=== PATIENT | male | born 1955 | race Caucasian/White ===

== ENCOUNTER 2021-04-26 14:07 | Inpatient (IN) | payer MEDICARE, OTHER ==
[2021-04-26] MEDS ORDERED: Diazepam 10 MG/2 ML SYRINGE ONE (16:17)
[2021-04-26] MEDS ORDERED: Aspirin Chewable 81 MG TAB ONE (16:20)
[2021-04-26] MEDS ORDERED: Ondansetron PF 4 MG/2 ML Vial ONE (16:20)
[2021-04-26 16:23] LABS: #Eosinphils 0.1 thou/uL (0.0-0.7); #Lymphocytes 0.9 thou/uL (1.20-3.40); #Monocytes 0.7 thou/uL (0.11-0.59); #Neutrophils 11.7 thou/uL (1.40-6.50); %Basophils 0.1 % (0.0-1.0); %Eosinophils 0.4 % (0.0-10.0); %Lymphocytes 6.7 % (21.0-51.0); %Monocytes 5.2 % (0.0-10.0); %Neutrophils 87.5 % (42.0-75.0); Hemoglobin 15.9 g/dL (14.0-18.0); Mean Corpuscular HGB CONC 34.5 g/dL (32.0-36.0); Mean Corpuscular Hemoglobin 31.4 pg (27.0-31.0); Mean Platelet Volume 7.1 fL (7.4-10.4); Platelet Count 259 thou/uL (130-400); RBC Distribution Width 11.9 % (11.5-14.5); Red Blood Cell (RBC) Count 5.05 mill/uL (4.70-6.10); White Blood Cell (WBC) Count 13.3 thou/uL (4.8-10.8)
[2021-04-26 16:40] LABS: ALT (SGPT) 14 U/L (8-55); AST (SGOT) 19 U/L (5-34); Albumin 4.4 g/dL (3.4-4.8); Alkaline Phosphatase 61 U/L (40-110); Anion Gap 16 mmol/L (10-20); BUN (Urea Nitrogen) 22 mg/dL (8.4-25.7); Bilirubin, Total 0.4 mg/dL (0.2-1.2); CK (CPK) 69 U/L (30-200); Calc. Creatinine Clearance 0 mL/min (70-130); Calcium 9.5 mg/dL (7.8-10.44); Carbon Dioxide 22 mmol/L (23-31); Chloride 107 mmol/L (98-107); Globulin 2.8 g/dL (2.4-3.5); Glucose 138 mg/dL (80-115); Lipase 11 U/L (8-78); Potassium 4.4 mmol/L (3.5-5.1); Protein, Total 7.2 g/dL (5.8-8.1); Sodium 141 mmol/L (136-145)
[2021-04-26] MEDS ORDERED: Ondansetron PF 4 MG/2 ML Vial IVP PRN (17:38)
[2021-04-26] MEDS ORDERED: hydrALAZINE 20 MG/ML VIAL SLOW IVP PRN (17:38)
[2021-04-26] MEDS ORDERED: Enoxaparin Sodium 40 MG/0.4 ML SYRINGE SC SCH (17:45)
[2021-04-26 18:40] VITALS: BMI 32.0
[2021-04-26] MEDS: Sodium Chloride 0.9% 1,000 ML IV SCH (20:06)
[2021-04-26 21:14] LABS: Bacteria/HPF None Seen HPF (None Seen); Bilirubin Negative (Negative); Blood, Urine Negative (Negative); Clarity Clear (Clear); Glucose, Urine (Dipstick) Normal (Negative); Ketone, Urine Negative (Negative); Leukocyte Negative Leu/uL (Negative); Nitrite Negative (Negative); Protein, Urine (Dipstick) 20 mg/dL (Neg-Trace); RBC/HPF 0-3 HPF (0-3); Specific Gravity, Urine 1.028 (1.002-1.036); Squamous Epithelial None Seen HPF (0-3); Urobilinogen Normal mg/dL (Less than 2); WBC/HPF 0-3 HPF (0-3)
[2021-04-26 21:16] LABS: Urine Culture Reflex No No
[2021-04-26 21:28] LABS: Creatinine, Urine 242.03 mg/dL (63-166)
[2021-04-26] MEDS: Atorvastatin Calcium 40 MG TAB PO SCH (21:50)
[2021-04-26] MEDS: Metoclopramide HCl 10 MG/2 ML VIAL IVP PRN (21:50)
[2021-04-27] MEDS: Acetaminophen 325 MG TAB PO PRN ×4 (04:27→21:09)
[2021-04-27 05:32] LABS: #Lymphocytes 1.5 thou/uL (1.20-3.40); #Monocytes 0.9 thou/uL (0.11-0.59); #Neutrophils 6.5 thou/uL (1.40-6.50); %Eosinophils 0.4 % (0.0-10.0); %Lymphocytes 16.5 % (21.0-51.0); %Neutrophils 73.1 % (42.0-75.0); Hemoglobin 13.6 g/dL (14.0-18.0); Mean Corpuscular HGB CONC 34.4 g/dL (32.0-36.0); Mean Corpuscular Hemoglobin 31.1 pg (27.0-31.0); Mean Corpuscular Volume 90.4 fL (78.0-98.0); Mean Platelet Volume 7.2 fL (7.4-10.4); Platelet Count 228 thou/uL (130-400); RBC Distribution Width 11.8 % (11.5-14.5); Red Blood Cell (RBC) Count 4.36 mill/uL (4.70-6.10); White Blood Cell (WBC) Count 8.9 thou/uL (4.8-10.8)
[2021-04-27 05:55] LABS: Anion Gap 12 mmol/L (10-20); BUN (Urea Nitrogen) 19 mg/dL (8.4-25.7); Calc. Creatinine Clearance 95 mL/min (70-130); Calcium 8.7 mg/dL (7.8-10.44); Carbon Dioxide 23 mmol/L (23-31); Cardiac Risk 5.5 (Less than 4.5); Chloride 108 mmol/L (98-107); Cholesterol 169 mg/dl (< 200 Desired); Glucose 111 mg/dL (80-115); HDL Cholesterol 31 mg/dL (>60 Neg Risk); LDL Cholesterol, Calculated 106 mg/dL; Potassium 4.1 mmol/L (3.5-5.1); Sodium 139 mmol/L (136-145); Triglycerides 161 mg/dL (Less than 150)
[2021-04-27] MEDS: Sodium Chloride 0.9% 1,000 ML IV SCH ×2 (05:59→17:59)
[2021-04-27] MEDS: Metoclopramide HCl 10 MG/2 ML VIAL IVP PRN (05:59)
[2021-04-27] MEDS: Aspirin 81 mg Enteric Coated Tablet PO SCH (08:44)
[2021-04-27] MEDS: Enoxaparin Sodium 40 MG/0.4 ML SYRINGE SC SCH (08:44)
[2021-04-27 14:12] LABS: SARS-CoV-2 PCR by NAA Not Detected (NotDetected)
[2021-04-27] MEDS: Atorvastatin Calcium 40 MG TAB PO SCH (21:09)
[2021-04-28 06:25] LABS: #Eosinphils 0.2 thou/uL (0.0-0.7); #Lymphocytes 1.6 thou/uL (1.20-3.40); #Monocytes 0.6 thou/uL (0.11-0.59); #Neutrophils 3.5 thou/uL (1.40-6.50); %Basophils 0.5 % (0.0-1.0); %Eosinophils 2.7 % (0.0-10.0); %Lymphocytes 26.9 % (21.0-51.0); %Monocytes 9.5 % (0.0-10.0); %Neutrophils 60.4 % (42.0-75.0); Hemoglobin 13.4 g/dL (14.0-18.0); Mean Corpuscular HGB CONC 33.6 g/dL (32.0-36.0); Mean Corpuscular Hemoglobin 30.5 pg (27.0-31.0); Mean Corpuscular Volume 90.7 fL (78.0-98.0); Mean Platelet Volume 7.1 fL (7.4-10.4); Platelet Count 197 thou/uL (130-400); RBC Distribution Width 11.7 % (11.5-14.5); Red Blood Cell (RBC) Count 4.38 mill/uL (4.70-6.10); White Blood Cell (WBC) Count 5.8 thou/uL (4.8-10.8)
[2021-04-28 06:41] LABS: Anion Gap 9 mmol/L (10-20); BUN (Urea Nitrogen) 15 mg/dL (8.4-25.7); Calc. Creatinine Clearance 86 mL/min (70-130); Calcium 8.7 mg/dL (7.8-10.44); Carbon Dioxide 27 mmol/L (23-31); Chloride 106 mmol/L (98-107); Glucose 92 mg/dL (80-115); Potassium 4.2 mmol/L (3.5-5.1); Sodium 138 mmol/L (136-145)
[2021-04-28] MEDS: Enoxaparin Sodium 40 MG/0.4 ML SYRINGE SC SCH (09:26)
[2021-04-28] MEDS: Acetaminophen 325 MG TAB PO PRN (09:26)
[2021-04-28] MEDS: Aspirin 81 mg Enteric Coated Tablet PO SCH (09:26)
[2021-04-28 11:48] VITALS: TEMP 98.2
[2021-04-28 15:55] VITALS: BP 160/96
== END 2021-04-28 17:20 | disposition home or self-care (01) | DRG 65 ==
LOC: ERS 14:07 → NEURO 17:23 → OBSVTOIN 04-27 11:08
PROVIDERS: ADMIT Internal Medicine; ATTEND Internal Medicine
DX: I63.541 Cerebral infarction due to unspecified occlusion or stenosis of right cerebellar artery (principal); N17.9 Acute kidney failure, unspecified; Z20.822 Contact with and (suspected) exposure to COVID-19; M10.9 Gout, unspecified; F17.220 Nicotine dependence, chewing tobacco, uncomplicated; R29.700 NIHSS score 0; Z80.1 Family history of malignant neoplasm of trachea, bronchus and lung; Z81.2 Family history of tobacco abuse and dependence
CPT/HCPCS: 36415; 70450; 70551; 80048; 80053; 80061; 81001; 82550; 82570; 83605; 83690; 84300; 84484; 85025; 93005; 93306; 93880; 96372; 96375; 96376; G0378; J1650; J2405; J2765; J3360; J7050; U0003; U0005